=== PATIENT | female | born 1970 | race Hispanic/Latino ===

== ENCOUNTER 2017-02-25 11:39 | Outpatient (CLI) | payer OTHER ==
--- NOTE | 2017-02-25 14:43 | Mammography Report ---
Screening mammogram: There is a heterogeneously dense fibroglandular pattern. In the posterior central right breast there is a 2.3 cm partially circumscribed mass which is questionably seen in the superior right breast on lateral view. Compared to prior examination of February 2016 this right breast mass was not present however the remainder of the breast pattern appears unchanged bilaterally. CAD used. Impression: Right breast asymmetry. Recommendation: Right breast ultrasound. If this mass does not represent a simple cyst additional compression mammography needed. BI-RADS CATEGORY: 0 = Needs additional imaging evaluation ACR BI-RADS MAMMOGRAPHIC CODES: 0 = Needs additional imaging evaluation; 1 = Negative; 2 = Benign; 3 = Probably benign; 4 = Suspicious; 5 = Malignant; 6 = Known biopsy-proven malignancy COMMENT: 1. Dense breast tissue, i.e., adenosis, fibrocystic changes, etc., may obscure an underlying neoplasm. 2. Approximately 10% of cancers are not detected with mammography. 3. A negative mammography report should not delay biopsy if a clinically suspicious mass is present.
== END 2017-02-25 11:40 | disposition home or self-care (01) ==
LOC: SPVWC 11:39
PROVIDERS: ATTEND Obstetrics & Gynecology
DX: Z12.31 Encounter for screening mammogram for malignant neoplasm of breast (principal)
CPT/HCPCS: 77067; G0202

== ENCOUNTER 2017-03-02 13:18 | Outpatient (CLI) | payer OTHER ==
--- NOTE | 2017-03-02 13:51 | Ultrasound Report ---
TARGETED RIGHT BREAST ULTRASOUND: 03/02/17 13:18:00 CLINICAL: Recall to evaluate an asymmetry on screening mammogram. COMPARISON: 02/25/17 mammogram FINDINGS: Ultrasound of the upper outer right breast was performed and demonstrated a benign cyst at 10 o'clock 2 cm from the nipple.It measures 2.3 x 1.2 x 1.9 cm and correlates with the mammographic asymmetry. A partial septation is identified within the cyst. IMPRESSION: Benign cyst right breast. BI-RADS 2 - - Benign RECOMMENDATION: Routine mammographic screening in one year.
== END 2017-03-02 13:19 | disposition home or self-care (01) ==
LOC: SPVWC 13:18
PROVIDERS: ATTEND Obstetrics & Gynecology
DX: N60.01 Solitary cyst of right breast (principal)